=== PATIENT | female | born 1950 | race Caucasian/White ===

== ENCOUNTER 2016-09-12 10:45 | Inpatient (IN) | payer MEDICARE ==
--- NOTE | 2016-09-07 19:49 | HP ---
PREOPERATIVE HISTORY AND PHYSICAL: DATE OF ADMISSION: 09/14/16 PROVIDER: Dr. Alisia Chambers. CHIEF COMPLAINT: Left hip pain. HISTORY OF PRESENT ILLNESS: Ms. Nelson is a 66-year-old female who has had ongoing complaints of left hip pain. She was previously followed by Dr. Chambers for knee pain and underwent a total knee arthroplasty. She had recovered well from that, however, continues to have hip pain. She has failed antiinflammatories, physical therapy, and activity modification. She has elected to proceed with a total hip arthroplasty. PAST MEDICAL HISTORY: Osteoarthritis, hypercholesterolemia, hypertension, morbid obesity, and diabetes. PAST SURGICAL HISTORY: Tubal ligation, vein stripping, cataract surgery, and left total knee arthroplasty. She reports no complications with anesthesia with those procedures. CURRENT MEDICATIONS: 1. Metformin HCl 500 mg 2 tabs p.o. b.i.d. 2. Lisinopril 40 mg 1 p.o. q. day. 3. Levothyroxine 150 mcg p.o. q. day. 4. Gabapentin 300 mg p.o. t.i.d. 5. Ventolin HFA 100 mcg/act 1 to 2 puffs q.4 hours p.r.n. 6. Lovastatin 40 mg 1 p.o. q.h.s. 7. Vitamin D3 1000 units 2 tabs p.o. q. day. 8. Voltaren gel on the left hip as needed. 9. Glargine 74 units b.i.d. 10. Nasonex 50 mcg 2 puffs intranasally daily. 11. Oxycodone 10 mg p.o. b.i.d. ALLERGIES: No known drug allergies. FAMILY HISTORY: Positive for diabetes and cancer. SOCIAL HISTORY: She lives with her . She denies tobacco, alcohol, or recreational drug use. She is currently retired. REVIEW OF SYSTEMS: Constitutional: Negative for recent hospitalizations, fevers, chills, night sweats, or weight loss. HEENT: Head negative for headache, lightheadedness, or balance problems. Cardiovascular: Negative for chest or arm pain with exertion, history of heart attack, heart murmur, heart palpitations. Positive for high blood pressure. Negative for embolism or deep vein thrombosis. Respiratory: Negative for chronic cough, shortness of breath with exertion, asthma, or COPD. Gastrointestinal: Negative for heartburn, nausea, vomiting, diarrhea, constipation, or GERD. Genitourinary: Positive for nighttime urination. Negative for urinary frequency, urinary tract infections, or kidney problems. Musculo-skeletal: Negative for recent fractures. Positive for back pain. Skin: Negative for rashes, lesions, lumps , or sores. Neurologic: Negative for seizure, stroke, epilepsy, depression, or anxiety. Endocrine: Positive for diabetes, positive for hypothyroidism. Hematology: Negative for easy bleeding, bruising, or anemia. PHYSICAL EXAMINATION GENERAL: She is well-developed, well-nourished, pleasant female in no acute distress at rest. She is alert and oriented x3 with appropriate mood and affect. VITAL SIGNS: The patient is 5 feet 6 inches, 200 pounds. Blood pressure 148/62 , pulse 87, respirations 15. HEENT: Normocephalic, atraumatic. Hearing and vision are grossly intact. NECK: Her trachea is midline. RESPIRATORY: Lungs are clear to auscultation bilaterally. No wheezes, rales, or rhonchi. CARDIOVASCULAR: Regular rate and rhythm. No murmurs, rubs, or gallops. Normal S1, S2. ABDOMEN: Soft, nondistended, nontender. Normal bowel sounds. EXTREMITIES: Exam of the left lower extremity, skin is intact without abrasions or open wounds. She is tender to palpation along the greater trochanteric bursa as well as the anterior aspect of the hip in the groin. She is able to flex to 80 degrees passively. Any internal and external rotation causes groin pain. Her sensation to light touch is intact to all nerve distributions distally. She has a 2+ dorsalis pedis pulse. IMPRESSION: Left hip osteoarthritis. PLAN: The patient is to undergo left total hip arthroplasty by Dr. Chambers on . The risks, benefits, and postoperative course were discussed with the patient at length and she would like to proceed. All of her questions were answered to her full satisfaction. JULIUS RAMOS [id number]/[facility] #: [id number] COLIN
[~2016-09-12 10:45] MED LIST: Buffered Lidocaine 0.9% SYRIN* 5 ML/SYR SYRINGE INTRADERM ONE; Famotidine IV* 10 MG/ML 2 ML (20 mg) IV ONE; Levalbuterol 0.63MG/3ML NEB INH ONE; Metoclopramide TAB* 10 MG PO ONE
[2016-09-12] MEDS ORDERED: Famotidine IV* 10 MG/ML 2 ML (20 mg) ONE (10:50)
[2016-09-12] MEDS ORDERED: Buffered Lidocaine 0.9% SYRIN* 5 ML/SYR SYRINGE ONE (10:51)
[2016-09-12] MEDS ORDERED: ceFAZolin 2 GM PREMIX(*) 2 GM/50 ML BAG IVPB ONE (10:51)
[2016-09-12] MEDS ORDERED: Levalbuterol 1.25MG/0.5ML NEB ONE (10:51)
[2016-09-12] MEDS ORDERED: Metoclopramide TAB* 10 MG ONE (10:51)
[2016-09-12] MEDS ORDERED: Ketorolac INJ* 30 MG/ML 1 ML VIAL ONE (13:09)
[2016-09-12] MEDS ORDERED: Cisatracurium* 2 MG/ML MDV 5 ML ONE (13:09)
[2016-09-12] MEDS ORDERED: fentaNYL* 50 MCG/ML 5 ML VIAL (250 MCG VIAL) ONE (13:09)
[2016-09-12] MEDS ORDERED: Dexamethasone IV* 4 MG/ML 1 ML (4 MG) ONE (13:09)
[2016-09-12] MEDS ORDERED: Ondansetron INJ* 2 MG/ML VIAL ONE (13:09)
[2016-09-12] MEDS ORDERED: Propofol* 10 MG/ML 20 ML BTL IV PUSH ONE ×2 (13:09→14:28)
[2016-09-12] MEDS ORDERED: Lidocaine 2% PF * 5 ML VIAL ONE (13:09)
[2016-09-12] MEDS ORDERED: KETAMINE HCL* 50 MG/ML 10 ML VIAL ONE (13:09)
[2016-09-12] MEDS ORDERED: Midazolam* 1 MG/ML 5 ML VIAL (5 MG) ONE (13:10)
[2016-09-12] MEDS ORDERED: fentaNYL* 50 MCG/ML 2 ML VIAL (100 MCG VIAL) ONE ×4 (14:27→15:30)
[2016-09-12] MEDS ORDERED: Ondansetron ODT TAB* 4 MG PO PRN (14:30)
[2016-09-12] MEDS ORDERED: fentaNYL* 50 MCG/ML 2 ML VIAL (100 MCG VIAL) IV PRN (14:30)
[2016-09-12] MEDS ORDERED: HYDROmorphone* 1 MG/ML 1 ML SYR IV PRN (14:30)
[2016-09-12] MEDS ORDERED: DiMENhydriNATE IV* 50 MG/ML VIAL IV PUSH PRN (14:30)
[2016-09-12] MEDS ORDERED: Bupivacaine 0.5% SDV PF* 30 ML VIAL ONE (15:31)
[2016-09-12] MEDS ORDERED: Phenylephrine INJ* 10 MG/ML 1 ML VIAL (10 MG) ONE (15:50)
[2016-09-12] MEDS ORDERED: HYDROmorphone* 1 MG/ML 1 ML SYR ONE (15:58)
--- NOTE | 2016-09-12 16:07 | RAD ---
INDICATION: Intraoperative hip arthroplasty film TECHNIQUE: An AP view of the pelvis was obtained. FINDINGS: A right hip prosthesis appears to be anatomically aligned in the AP projection. The femoral head prosthesis has not yet been attached. IMPRESSION: Anatomic alignment in the AP projection of the acetabular and femoral shaft components of a right hip prosthesis.
[2016-09-12] MEDS ORDERED: Morphine INJ* 10 MG/ML 1 ML SYRINGE IV PRN (16:36)
[2016-09-12] MEDS ORDERED: Bisacodyl SUPP* 10 MG SUPP PR PRN (16:36)
[2016-09-12] MEDS ORDERED: diPHENhydraMINE PO* 25 MG PO PRN (16:36)
[2016-09-12] MEDS ORDERED: Ondansetron TAB* 4 MG PO PRN (16:36)
[2016-09-12] MEDS ORDERED: Ondansetron INJ* 2 MG/ML VIAL IV PRN (16:36)
[2016-09-12] MEDS ORDERED: diPHENhydraMINE IV* 50 MG/ML 1 ml VIAL (BENADRYL) IV PRN (16:36)
[2016-09-12] MEDS ORDERED: Polyethylene Glycol 3350* 17 GM PACKET PO PRN (16:42)
[2016-09-12] MEDS ORDERED: Fluticasone NASAL SPRAY 50MCG* 16 gm SPRAY BTL BOTH NARES PRN (16:49)
[2016-09-12] MEDS ORDERED: oxyCODONE/Acetamin 5/325 MG* TAB ONE (17:45)
[2016-09-12] MEDS: oxyCODONE/Acetamin 5/325 MG* TAB PO PRN ×3 (17:50→23:57)
--- NOTE | 2016-09-12 18:24 | RAD ---
INDICATION: Status post left total hip arthroplasty COMPARISON: Preoperative radiograph dated July 18, 2016 TECHNIQUE: 3 views of the left hip were obtained. FINDINGS: The left hip prosthesis is anatomically aligned in the AP and lateral views. There is no radiographic evidence of periprosthetic fracture or dislocation. Expected postoperative subcutaneous gas is noted overlying the hip. IMPRESSION: Anatomic alignment of left hip prosthesis.
[2016-09-12] MEDS: Gabapentin CAP(*) 300 MG PO SCH ×2 (19:37→20:52)
[2016-09-12] MEDS ORDERED: Warfarin TAB(*) 6 MG PO ONE (20:00)
[2016-09-12] MEDS: Atorvastatin* 10 MG TAB PO SCH (20:52)
[2016-09-12] MEDS: Magnesium Hydroxide LIQ* 30 ML UDC PO SCH (20:52)
[2016-09-12] MEDS: Insulin GLARGINE(*) 1 UNITS UNIT SUBCUT SCH (20:53)
[2016-09-12] MEDS: Docusate CAP* 100 MG PO SCH (20:53)
[2016-09-12] MEDS: ceFAZolin VIAL(*) 1 GM in NS 0.9% 50 ML* 50 ML IVPB SCH (20:54)
[2016-09-12] MEDS: Nystatin TOP POWDER* 15 GM BTL TOPICAL SCH (20:55)
[2016-09-13] MEDS: oxyCODONE TAB* 5 MG TAB PO PRN ×4 (01:20→17:36)
[2016-09-13] MEDS: ceFAZolin VIAL(*) 1 GM in NS 0.9% 50 ML* 50 ML IVPB SCH ×2 (03:54→12:00)
[2016-09-13] MEDS: oxyCODONE/Acetamin 5/325 MG* TAB PO PRN ×4 (05:33→21:56)
[2016-09-13] MEDS: Levothyroxine TAB* 150 MCG TAB PO SCH (05:33)
[2016-09-13 05:42] LABS: Hematocrit 28 % (35-47); Hemoglobin 9.5 g/dl (12.0-16.0)
[2016-09-13 05:43] LABS: Comments Flag Yes
[2016-09-13 06:09] LABS: BUN/Creatinine Ratio 23.3 (8-20); Calcium 8.3 mg/dL (8.6-10.3); EGFR African American 84.6 (>60); EGFR Non-African American 65.8 (>60); Potassium 4.9 mmol/L (3.5-5.0)
[2016-09-13] MEDS ORDERED: Dextrose 50% Syringe 50 ML* 25 GM/50 ML SYRINGE IV PUSH PRN (07:09)
--- NOTE | 2016-09-13 07:39 | PN ---
Progress Note - Progress Note Date of Service: 09/13/16 SOAP: Subjective: Pt. reports pain was severe overnight. Objective: LLE - dressing c/d/i. thigh soft, distally +df/pf, full sens lt, 2+ dp pulse. Vital Signs: Temp Pulse Resp BP Pulse Ox 98.0 F 78 16 121/43 96 09/13/16 04:08 09/13/16 04:08 09/13/16 05:49 09/13/16 04:08 09/13/16 05:49 Laboratory Results - last 24 hr 09/12/16 09/12/16 09/12/16 11:04 14:23 16:39 Hgb Hct INR (Anticoag Therapy) Sodium Potassium Chloride Carbon Dioxide Anion Gap BUN Creatinine Est GFR ( Amer) Est GFR (Non-Af Amer) BUN/Creatinine Ratio Glucose POC Glucose (mg/dL) 139 H 128 H 206 H Calcium 09/13/16 09/13/16 09/13/16 00:02 05:29 05:29 Hgb 9.5 L Hct 28 L INR (Anticoag Therapy) 1.08 Sodium Potassium Chloride Carbon Dioxide Anion Gap BUN Creatinine Est GFR ( Amer) Est GFR (Non-Af Amer) BUN/Creatinine Ratio Glucose POC Glucose (mg/dL) 359 H Calcium 09/13/16 05:29 Hgb Hct INR (Anticoag Therapy) Sodium 136 Potassium 4.9 Chloride 105 Carbon Dioxide 25 Anion Gap 6 BUN 20 Creatinine 0.86 Est GFR ( Amer) 84.6 Est GFR (Non-Af Amer) 65.8 BUN/Creatinine Ratio 23.3 H Glucose 262 H POC Glucose (mg/dL) Calcium 8.3 L Assessment: 66 yo F pod 1 s/p LTHA Plan: wbat LLE with post hip precautions pt/ot 8 mg coumadin tonight with lovenox today xrays satisfactory
[2016-09-13] MEDS: metFORMIN* 1,000 MG TAB PO SCH ×2 (08:00→17:10)
[2016-09-13] MEDS: Magnesium Hydroxide LIQ* 30 ML UDC PO SCH ×2 (08:41→22:00)
[2016-09-13] MEDS: Gabapentin CAP(*) 300 MG PO SCH ×4 (08:41→21:56)
[2016-09-13] MEDS: Docusate CAP* 100 MG PO SCH ×2 (08:41→21:56)
[2016-09-13] MEDS: Insulin GLARGINE(*) 1 UNITS UNIT SUBCUT SCH ×2 (08:42→21:54)
[2016-09-13] MEDS: Insulin LISPRO* 1 UNITS UNIT SUBCUT SCH ×4 (08:42→21:53)
[2016-09-13] MEDS: Nystatin TOP POWDER* 15 GM BTL TOPICAL SCH ×2 (08:46→22:03)
[2016-09-13] MEDS ORDERED: Lisinopril TAB* 10 MG PO SCH (09:00)
--- NOTE | 2016-09-13 13:41 | OP ---
OPERATIVE REPORT: DATE OF OPERATION: 09/12/16 DATE OF : 48 SURGEON: Alisia Chambers MD FENCE MACHINE OPERATOR: JULIUS Vallejo Ms. Bah did help throughout the procedure with preparation of the leg, wound retraction, manipula tion of the hip, and wound closure. ANESTHESIOLOGIST: Dr. Peña. ANESTHESIA: General. PRE-OP DIAGNOSIS: Severe end-stage degenerative osteoarthritis of the left hip joint. POST-OP DIAGNOSIS: Severe end-stage degenerative osteoarthritis of the left hip joint. OPERATIVE PROCEDURE: Left total hip arthroplasty. INDICATIONS: Ms. Nelson is a 66-year-old female who developed increasingly severe left hip pain over the last few months. Radiographs confirmed end-stage arthritis. She failed conservative treatment with anti-inflammatories, pain medication, and physical therapy. Due to severe pain and decreased q uality of life, she elected to undergo left total hip arthroplasty. Informed consent was obtained f rom the patient. She understood the risks of surgery included but were not limited to bleeding, inf ection, damage to nearby structures, continued pain, need for further surgery, intraoperative fractu re, nerve palsy, hardware failure or loosening, leg length discrepancy, dislocation, stroke, heart a ttack, blood clot, and . She wished to proceed. COMPLICATIONS: None. SPECIMENS: Femoral head and acetabular reaming sent to Pathology. HARDWARE USED: Uncemented [place] total hip hardware was used. For the cup, a Tritanium cluster ho le shell 54E with a 20- and 25-mm cancellous bone screw. Trident X3 0-degree polyethylene insert 36E . For the stem, an Accolade TMZF size 5 with a 127-degree neck. Biolox delta ceramic V40 femoral h ead 36 -5. INTRAOPERATIVE FINDINGS: Intraoperatively, the patient was noted to have severe end-stage arthritis of the joint with complete loss of cartilage along the acetabulum and femoral head. She had extens ángel osteophyte formation. DESCRIPTION OF PROCEDURE: Ms. Nelson was identified in the preanesthesia unit. Her left lower extre mity was marked as the correct operative side. Informed consent was signed and placed in the chart. The patient was taken to the operating room and placed under general anesthesia. A Marques catheter was placed. She was placed in the right lateral decubitus position on the pegboard and all bony pr ominences were well padded. Left lower extremity was prepped and draped in the usual sterile fashio n. Preop time-out was made to correctly identify the patient's side and site. Appropriate perioper ative antibiotics were given within 1 hour of incision. A 14-cm posterior hip incision was made with a 10-blade and carried down to the lateral fascial laye r. Lateral fascial layer was incised in line with the skin incision. A Charnley retractor was plac ed. The piriformis and conjoint tendons were identified and elevated off the posterolateral femur u sing electrocautery. These were tagged with two #5 Ethibond's. Next, electrocautery was used to renato e a standard posterolateral capsular flap and this was also tagged with two #5 Ethibond's. The hip was carefully dislocated. Lesser troch to center of the femoral head measured 55 mm. Oscillating s aw was used to make the appropriate femoral neck cut. The femoral head was sent to Pathology. The femur was carefully retracted anteriorly. After appropriate placement of retractors, the aceta bulum was visualized. A long-handled knife was used to sharply remove any remaining labrum from the acetabular rim. The acetabulum had extensive osteophyte formation. The acetabulum was sequentiall y reamed to a size 53. A bleeding subchondral bone was visualized. 53-mm trial had excellent stabi lity and fit. A 54 Tritanium cluster hole shell was chosen and impacted into the acetabulum. This cup had excellent stability with appropriate anteversion and abduction angle. Two screws were place d in the superior posterior quadrant for extra stability. These were lengths 20 and 25 mm. Next, a Trident X3 0-degree polyethylene insert was chosen, 36E. This was impacted into the acetabular cup without difficulty. Stability of the alignment was checked and rechecked and noted to be stable. Attention was next turned to preparation of the femur. A canal finder was used to enter the proxima l femur. The femur was sequentially broached up to a size 5. The size 5 broach had good stability. A 127-degree neck trial was chosen as well as a 36 -5 femoral head trial. Lesser troch to center of the femoral head measured 56 mm. The hip was reduced and taken through a range of motion. The h ip was stable in all positions. There was appropriate soft tissue tension and leg lengths. The hip was carefully dislocated. All trials were carefully removed. Final implant chosen was an Accolade TMZF size 5 with a 127-degree neck. This was impacted into the femoral canal without difficulty. There was good stability of the stem. Appropriate anteversion. A 36 -5 ceramic Biolox femoral head was chosen. This was impacted on to the femoral neck without d ifficulty. The hip was reduced and taken through range of motion. The hip was stable in all positi ons. The hip was copiously irrigated with sterile saline. The previously tagged capsule and tendons were reapproximated to the posterolateral femur through 2 trochanteric drill holes. The lateral fascial layer was closed using interrupted #1 Vicryl's. The rest of the incision was closed in a layered fa shion using 0 and 2-0 Vicryl's. The skin was closed using running 3-0 Monocryl suture with Dermabond . Sterile Adaptic, 4x4s, and paper tape were used to cover the incision. The patient's anesthesia was reversed without difficulty. She was taken to the PACU in stable condi tion. Intended weightbearing will be weightbearing as tolerated. Intended DVT prophylaxis will be Coumadin with a Lovenox bridge. [id number]/[facility] #: [id number]
--- NOTE | 2016-09-13 16:13 | PN ---
Subjective Date of Service: 09/13/16 Interval History: This is a 66 yo female with IDDM, hypothyroidism, HTN, HLD and obesity who presented for elective MAUREEN with Dr Chambers yesterday. Patient reports that her pain control is moderate. She denies CP, SOB, abd pain, n/v. She has been hyperglycemic since surgery, she reports better control at home. Objective Active Medications: Atorvastatin Calcium (Lipitor*) 5 mg PO BEDTIME [facility] Last Admin: 09/12/16 20:52 Dose: 5 mg Bisacodyl (Dulcolax Supp*) 10 mg DC DAILY PRN PRN Reason: constipation Dextrose (D50w Syringe 50 Ml*) 12.5 gm IV PUSH .FOR FS < 60 - SS PRN PRN Reason: FS < 60 Diphenhydramine HCl (Benadryl Iv*) 12.5 mg IV Q6H PRN PRN Reason: PRURITIS Diphenhydramine HCl (Benadryl Po*) 25 mg PO Q6H PRN PRN Reason: INSOMNIA Docusate Sodium (Colace Cap*) 100 mg PO BID [facility] Last Admin: 09/13/16 08:41 Dose: 100 mg Enoxaparin Sodium (Lovenox(*)) 30 mg SUBCUT Q24H [facility] Fluticasone Propionate (Flonase Nasal [place] 50mcg*) 2 spray BOTH NARES DAILY PRN PRN Reason: Chronic Sinusitis Gabapentin (Neurontin Cap(*)) 300 mg PO QID [facility] Last Admin: 09/13/16 13:04 Dose: 300 mg Lactated Ringer's (Lactated Ringers 1000 Ml Bag*) 1,000 mls @ 100 mls/hr IV PER RATE [facility] Last Admin: 09/12/16 20:54 Dose: 100 mls/hr Insulin Glargine (Lantus(*)) 74 units SUBCUT BID [facility] Last Admin: 09/13/16 08:42 Dose: 74 units Insulin Human Lispro (Humalog*) 0 units SUBCUT ACHS [facility] PRN Reason: Protocol Last Admin: 09/13/16 13:04 Dose: 6 units Lactulose (Lactulose*) 30 ml PO Q6H PRN PRN Reason: constipation Levothyroxine Sodium (Synthroid Tab*) 150 mcg PO 0600 [facility] Last Admin: 09/13/16 05:33 Dose: 150 mcg Magnesium Hydroxide (Milk Of Magnesia Liq*) 30 ml PO BID [facility] Last Admin: 09/13/16 08:41 Dose: 30 ml Metformin HCl (Glucophage*) 1,000 mg PO 0800,1700 [facility] Last Admin: 09/13/16 08:00 Dose: 1,000 mg Morphine Sulfate (Morphine Inj (Syringe)*) 5 mg IV Q2H PRN PRN Reason: PAIN Nystatin (Nystatin Top Powder*) 1 applic TOPICAL BID [facility] Last Admin: 09/13/16 08:46 Dose: 1 applic Ondansetron HCl (Zofran Inj*) 4 mg IV Q6H PRN PRN Reason: nausea Ondansetron HCl (Zofran Tab*) 4 mg PO Q6H PRN PRN Reason: NAUSEA Oxycodone HCl (Roxycodone Tab*) 10 mg PO Q4H PRN PRN Reason: breakthru pain Last Admin: 09/13/16 12:04 Dose: 10 mg Oxycodone/Acetaminophen (Percocet 5/325 Tab*) 1 tab PO Q3H PRN PRN Reason: PAIN - MODERATE Last Admin: 09/12/16 23:57 Dose: 1 tab Oxycodone/Acetaminophen (Percocet 5/325 Tab*) 2 tab PO Q3H PRN PRN Reason: PAIN - MODERATE Last Admin: 09/13/16 15:36 Dose: 2 tab Pharmacy Profile Note (Coumadin Daily Reminder*) 1 note FOLLOW UP 1700 [facility] Polyethylene Glycol/Electrolytes (Miralax*) 17 gm PO DAILY PRN PRN Reason: Constipation Warfarin Sodium (Coumadin Tab(*)) 8 mg PO ONCE@1700 ONE PRN Reason: Protocol Stop: 09/13/16 17:01 Vital Signs: Temp Pulse Resp BP Pulse Ox 98.0 F 89 18 119/40 97 09/13/16 11:07 09/13/16 11:07 09/13/16 15:36 09/13/16 11:07 09/13/16 16:00 Oxygen Devices in Use Now: None Appearance: Well appearing female accompanied by family in NAD Respiratory: Symmetrical Chest Expansion and Respiratory Effort, Clear to Auscultation Cardiovascular: NL Sounds; No Murmurs; No JVD, RRR Abdominal: NL Sounds; No Tenderness; No Distention Extremities: No Edema Skin: No Rash or Ulcers Neurological: Alert and Oriented x 3 Result Diagrams: 09/13/16 05:29 09/13/16 05:29 Assess/Plan/Problems-Billing Assessment: This is a 66 yo female with IDDM, hypothyroidism, HTN, HLD and obesity who underwent MAUREEN with Dr Chambers 09/12/16. Hospitalist group has been asked to consult for medical co-management. - Patient Problems (1) History of total hip arthroplasty Comment: POD #1 Postoperative management per orthopedic surgery team (2) Diabetes mellitus Comment: IDDM Will check HgbA1c She is hyperglycemic postoperatively with her typical Lantus dose continued Add additional mealtime SS coverage (3) Hypertension Comment: Normotensive Resume lisinopril tomorrow am (4) Hypothyroidism Comment: Cont levothyroxine (5) MANDY (obstructive sleep apnea) (6) Obesity Comment: BMI 36 (7) DVT prophylaxis Comment: Lovenox bridging to Coumadin per ortho Status and Disposition: Inpatient. Dispo per ortho. Plans to attend [facility] following discharge. Hospitalist group will continue to follow
[2016-09-13] MEDS ORDERED: Warfarin TAB(*) 4 MG PO ONE (17:00)
[2016-09-13] MEDS: Enoxaparin(*) 30 MG/0.3 ML SYR SUBCUT SCH (17:11)
--- NOTE | 2016-09-13 17:30 | PN ---
Progress Note - Progress Note Date of Service: 09/13/16 SOAP: Subjective: This is a 66 yo white female s/p day 1 left tota, hip secondary to OA with PMH of hyperlipidemia, HTN, DM, and obesity. She complains of continued left hip pain but has been able to ambulate some throughout the day. Pain was worse overnight but is manageable with medication. Denies SOB, chest pain, abdominal pain, n/v/d/c, edema, weakness, chills, or fever. She remains with vital signs WNL. Active medications: Atorvastatin Calcium (Lipitor*) 5 mg PO BEDTIME [facility] Last Admin: 09/12/16 20:52 Dose: 5 mg Bisacodyl (Dulcolax Supp*) 10 mg MD DAILY PRN PRN Reason: constipation Dextrose (D50w Syringe 50 Ml*) 12.5 gm IV PUSH .FOR FS < 60 - SS PRN PRN Reason: FS < 60 Diphenhydramine HCl (Benadryl Iv*) 12.5 mg IV Q6H PRN PRN Reason: PRURITIS Diphenhydramine HCl (Benadryl Po*) 25 mg PO Q6H PRN PRN Reason: INSOMNIA Docusate Sodium (Colace Cap*) 100 mg PO BID [facility] Last Admin: 09/13/16 08:41 Dose: 100 mg Enoxaparin Sodium (Lovenox(*)) 30 mg SUBCUT Q24H [facility] Last Admin: 09/13/16 17:11 Dose: 30 mg Fluticasone Propionate (Flonase Nasal [place] 50mcg*) 2 spray BOTH NARES DAILY PRN PRN Reason: Chronic Sinusitis Gabapentin (Neurontin Cap(*)) 300 mg PO QID [facility] Last Admin: 09/13/16 17:10 Dose: 300 mg Lactated Ringer's (Lactated Ringers 1000 Ml Bag*) 1,000 mls @ 100 mls/hr IV PER RATE [facility] Last Admin: 09/12/16 20:54 Dose: 100 mls/hr Insulin Glargine (Lantus(*)) 74 units SUBCUT BID [facility] Last Admin: 09/13/16 08:42 Dose: 74 units Insulin Human Lispro (Humalog*) 0 units SUBCUT ACHS [facility] PRN Reason: Protocol Last Admin: 07/12/17 17:36 Dose: 6 units Lactulose (Lactulose*) 30 ml PO Q6H PRN PRN Reason: constipation Levothyroxine Sodium (Synthroid Tab*) 150 mcg PO 0600 [facility] Last Admin: 09/13/16 05:33 Dose: 150 mcg Lisinopril (Prinivil Tab*) 40 mg PO DAILY [facility] Magnesium Hydroxide (Milk Of Magnesia Liq*) 30 ml PO BID [facility] Last Admin: 09/13/16 08:41 Dose: 30 ml Metformin HCl (Glucophage*) 1,000 mg PO 0800,1700 [facility] Last Admin: 09/13/16 17:10 Dose: 1,000 mg Morphine Sulfate (Morphine Inj (Syringe)*) 5 mg IV Q2H PRN PRN Reason: PAIN Nystatin (Nystatin Top Powder*) 1 applic TOPICAL BID [facility] Last Admin: 09/13/16 08:46 Dose: 1 applic Ondansetron HCl (Zofran Inj*) 4 mg IV Q6H PRN PRN Reason: nausea Ondansetron HCl (Zofran Tab*) 4 mg PO Q6H PRN PRN Reason: NAUSEA Oxycodone HCl (Roxycodone Tab*) 10 mg PO Q4H PRN PRN Reason: breakthru pain Last Admin: 09/13/16 17:36 Dose: 10 mg Oxycodone/Acetaminophen (Percocet 5/325 Tab*) 1 tab PO Q3H PRN PRN Reason: PAIN - MODERATE Last Admin: 09/12/16 23:57 Dose: 1 tab Oxycodone/Acetaminophen (Percocet 5/325 Tab*) 2 tab PO Q3H PRN PRN Reason: PAIN - MODERATE Last Admin: 09/13/16 15:36 Dose: 2 tab Pharmacy Profile Note (Coumadin Daily Reminder*) 1 note FOLLOW UP 1700 [facility] Last Admin: 09/13/16 17:11 Dose: 1 note Polyethylene Glycol/Electrolytes (Miralax*) 17 gm PO DAILY PRN PRN Reason: Constipation Allergies Allergy/AdvReac Type Severity Reaction Status Date / Time No Known Allergies Allergy Verified 09/01/16 15:51 Objective: Vital Signs: Temp Pulse Resp BP Pulse Ox 98.0 F 89 18 119/40 97 09/13/16 11:07 09/13/16 11:07 09/13/16 17:36 09/13/16 11:07 07/12/17 16:00 General: 66 yo obese white female sitting in chair in NAD. Skin: No areas of ecchymosis, erythema, lesions. Left hip with dry dressing no visible discharge or bleeding from incision site. Heart: RRR, S1 and S2 split, No JVD, No murmurs, rubs, or gallops. Lungs: Chest is symmetric, clear to auscultation throughout. Abdomen: Normactive bowel sounds, Abdomen is soft and nontender. Extremities: No edema, PP 2+ bilaterally, capillary refill less than 2 seconds. Neuro: Sensation intact throughout. Strength 5/5 throughout. Alert and oriented x3. Assessment/Plan: This is a 66 yo white female s/p day 1 left tota, hip secondary to OA with PMH of hyperlipidemia, HTN, DM, and obesity. 1) Status post operative left total hip: Management per ortho. 2) DM: Unsure about how well controlled patient is as glucose readings here are in the 200's. Patient states BG readings around 110-140 at home. No record found of previous hemoglobin A1C, she denies knowing previous reading. Cover with lantus and humalog while inpatient. 3) Hyperlipidemia: Cont statin 4) HTN: Start lisinopril. BP WNL. 5) Hypothyroidism: Cont Synthroid 6) DVT Prophylaxis: Lovenox bridge with Warfarin per ortho. 7) Code Status: Full code.
[2016-09-13] MEDS: Atorvastatin* 10 MG TAB PO SCH (21:57)
[2016-09-14] MEDS: oxyCODONE/Acetamin 5/325 MG* TAB PO PRN ×5 (02:57→21:57)
[2016-09-14] MEDS: oxyCODONE TAB* 5 MG TAB PO PRN (04:31)
[2016-09-14] MEDS: Levothyroxine TAB* 150 MCG TAB PO SCH (05:48)
[2016-09-14 07:18] LABS: Hematocrit 26 % (35-47); Hemoglobin 8.9 g/dl (12.0-16.0)
--- NOTE | 2016-09-14 08:05 | PN ---
Progress Note - Progress Note Date of Service: 09/14/16 SOAP: Subjective: POD #2 Left MAUREEN, doing ok. C/o moderate pain to hip and thigh. Denies CP/SOB, calf pain Objective: Vitals: Temp Pulse Resp BP Pulse Ox 98.2 F 98 18 123/47 94 09/14/16 07:28 09/14/16 07:28 09/14/16 07:28 09/14/16 07:28 09/14/16 07:28 Gen: A&Ox3, NAD at rest in chair Left Hip: Incision C/D/I. Moderate edema to thigh and calf, small ecchymosis surrounding incision. No erythema. +f/e at ankle, MTPs. N/V intact Labs: Laboratory Results - last 24 hr 09/13/16 09/13/16 09/13/16 12:00 16:39 21:44 Hgb Hct INR (Anticoag Therapy) POC Glucose (mg/dL) 262 H 259 H 258 H 09/14/16 09/14/16 09/14/16 05:26 05:26 07:19 Hgb 8.9 L Hct 26 L INR (Anticoag Therapy) 1.31 H POC Glucose (mg/dL) 229 H Assessment: POD #2 Left MUAREEN Plan: Cont PT/OT Cont pain medication INR 1.31 today, Coumadin 8mg tonight Probable d/c home tomorrow
[2016-09-14] MEDS: Magnesium Hydroxide LIQ* 30 ML UDC PO SCH ×2 (08:20→21:59)
[2016-09-14] MEDS: Insulin LISPRO* 1 UNITS UNIT SUBCUT SCH ×4 (08:20→21:58)
[2016-09-14] MEDS: Gabapentin CAP(*) 300 MG PO SCH ×4 (08:21→21:57)
[2016-09-14] MEDS: Docusate CAP* 100 MG PO SCH ×2 (08:21→21:57)
[2016-09-14] MEDS: Insulin GLARGINE(*) 1 UNITS UNIT SUBCUT SCH ×2 (08:21→21:58)
[2016-09-14] MEDS: Lisinopril TAB* 10 MG PO SCH (08:21)
[2016-09-14] MEDS: metFORMIN* 1,000 MG TAB PO SCH ×2 (08:21→16:49)
[2016-09-14] MEDS: Nystatin TOP POWDER* 15 GM BTL TOPICAL SCH ×2 (08:40→21:59)
--- NOTE | 2016-09-14 09:27 | PN ---
Progress Note - Progress Note Date of Service: 09/14/16 SOAP: Subjective: This is a 66 yo white female s/p day 2 left total hip secondary to OA with PMH of hyperlipidemia, HTN, DM, and obesity with no improvement with left hip pain on lateral side. More painful overnight and with ambulation, manageable with pain medication. Admits to constipation with last BM 4 days ago. Denies weakness , SOB, chest pain, extremity pain. Active medications: Atorvastatin Calcium (Lipitor*) 5 mg PO BEDTIME [facility] Last Admin: 09/13/16 21:57 Dose: 5 mg Bisacodyl (Dulcolax Supp*) 10 mg [place] DAILY PRN PRN Reason: constipation Dextrose (D50w Syringe 50 Ml*) 12.5 gm IV PUSH .FOR FS < 60 - SS PRN PRN Reason: FS < 60 Diphenhydramine HCl (Benadryl Iv*) 12.5 mg IV Q6H PRN PRN Reason: PRURITIS Diphenhydramine HCl (Benadryl Po*) 25 mg PO Q6H PRN PRN Reason: INSOMNIA Docusate Sodium (Colace Cap*) 100 mg PO BID [facility] Last Admin: 09/14/16 08:21 Dose: 100 mg Enoxaparin Sodium (Lovenox(*)) 30 mg SUBCUT Q24H [facility] Last Admin: 09/13/16 17:11 Dose: 30 mg Fluticasone Propionate (Flonase Nasal [place] 50mcg*) 2 spray BOTH NARES DAILY PRN PRN Reason: Chronic Sinusitis Gabapentin (Neurontin Cap(*)) 300 mg PO QID [facility] Last Admin: 09/14/16 08:21 Dose: 300 mg Lactated Ringer's (Lactated Ringers 1000 Ml Bag*) 1,000 mls @ 100 mls/hr IV PER RATE [facility] Last Admin: 09/12/16 20:54 Dose: 100 mls/hr Insulin Glargine (Lantus(*)) 74 units SUBCUT BID [facility] Last Admin: 09/14/16 08:21 Dose: 74 units Insulin Human Lispro (Humalog*) 0 units SUBCUT ACHS [facility] PRN Reason: Protocol Last Admin: 09/14/16 08:20 Dose: 4 units Lactulose (Lactulose*) 30 ml PO Q6H PRN PRN Reason: constipation Levothyroxine Sodium (Synthroid Tab*) 150 mcg PO 0600 [facility] Last Admin: 09/14/16 05:48 Dose: 150 mcg Lisinopril (Prinivil Tab*) 40 mg PO DAILY [facility] Last Admin: 09/14/16 08:21 Dose: 40 mg Magnesium Hydroxide (Milk Of Magnesia Liq*) 30 ml PO BID [facility] Last Admin: 09/14/16 08:20 Dose: 30 ml Metformin HCl (Glucophage*) 1,000 mg PO 0800,1700 [facility] Last Admin: 09/14/16 08:21 Dose: 1,000 mg Morphine Sulfate (Morphine Inj (Syringe)*) 5 mg IV Q2H PRN PRN Reason: PAIN Nystatin (Nystatin Top Powder*) 1 applic TOPICAL BID [facility] Last Admin: 09/14/16 08:40 Dose: 1 applic Ondansetron HCl (Zofran Inj*) 4 mg IV Q6H PRN PRN Reason: nausea Ondansetron HCl (Zofran Tab*) 4 mg PO Q6H PRN PRN Reason: NAUSEA Oxycodone HCl (Roxycodone Tab*) 10 mg PO Q4H PRN PRN Reason: breakthru pain Last Admin: 09/14/16 04:31 Dose: 10 mg Oxycodone/Acetaminophen (Percocet 5/325 Tab*) 1 tab PO Q3H PRN PRN Reason: PAIN - MODERATE Last Admin: 09/12/16 23:57 Dose: 1 tab Oxycodone/Acetaminophen (Percocet 5/325 Tab*) 2 tab PO Q3H PRN PRN Reason: PAIN - MODERATE Last Admin: 09/14/16 08:27 Dose: 2 tab Pharmacy Profile Note (Coumadin Daily Reminder*) 1 note FOLLOW UP 1700 [facility] Last Admin: 09/13/16 17:11 Dose: 1 note Polyethylene Glycol/Electrolytes (Miralax*) 17 gm PO DAILY PRN PRN Reason: Constipation Warfarin Sodium (Coumadin Tab(*)) 8 mg PO ONCE@1700 ONE PRN Reason: Protocol Stop: 09/14/16 17:01 Allergies Allergy/AdvReac Type Severity Reaction Status Date / Time No Known Allergies Allergy Verified 09/01/16 15:51 Objective: Vital Signs: Temp Pulse Resp BP Pulse Ox 98.2 F 98 18 123/47 94 09/14/16 07:28 09/14/16 07:28 09/14/16 08:27 09/14/16 07:28 09/14/16 07:28 General: 66 yo obese white female sitting in chair in NAD. Skin: No areas of ecchymosis, erythema, lesions. Left hip with dry dressing no visible discharge or bleeding from incision site. Heart: RRR, S1 and S2 split, No JVD, No murmurs, rubs, or gallops. Lungs: Chest is symmetric, clear to auscultation throughout. Abdomen: Normactive bowel sounds, Abdomen is soft and nontender. Extremities: No edema, PP 2+ bilaterally, capillary refill less than 2 seconds. Neuro: Sensation intact throughout. Strength 5/5 throughout. Alert and oriented x3. Assessment/Plan: This is a 66 yo white female s/p day 2 left total hip secondary to OA with PMH of hyperlipidemia, HTN, DM, and obesity. 1) Status post operative left total hip: Management per ortho. Probably discharge tomorrow to [facility]. 2) DM: Unsure about how well controlled patient is as glucose readings here are in the 200's. Patient states BG readings around 110-140 at home. No record found of previous hemoglobin A1C, she denies knowing previous reading. Cover with lantus and humalog while inpatient. 3) Hyperlipidemia: Cont statin 4) HTN: Start lisinopril. BP WNL. 5) Hypothyroidism: Cont Synthroid 6) DVT Prophylaxis: Lovenox bridge with Warfarin per ortho. INR: 1.31 7) Code Status: Full code.
--- NOTE | 2016-09-14 11:37 | PN ---
Subjective Date of Service: 09/14/16 Interval History: Patient reports persistent pain, but it seems manageable with current pain medications. No complaints of CP, SOB, abd pain, n/v. No BM since surgery. Objective Active Medications: Atorvastatin Calcium (Lipitor*) 5 mg PO BEDTIME [facility] Last Admin: 09/13/16 21:57 Dose: 5 mg Bisacodyl (Dulcolax Supp*) 10 mg [place] DAILY PRN PRN Reason: constipation Dextrose (D50w Syringe 50 Ml*) 12.5 gm IV PUSH .FOR FS < 60 - SS PRN PRN Reason: FS < 60 Diphenhydramine HCl (Benadryl Iv*) 12.5 mg IV Q6H PRN PRN Reason: PRURITIS Diphenhydramine HCl (Benadryl Po*) 25 mg PO Q6H PRN PRN Reason: INSOMNIA Docusate Sodium (Colace Cap*) 100 mg PO BID [facility] Last Admin: 09/14/16 08:21 Dose: 100 mg Enoxaparin Sodium (Lovenox(*)) 30 mg SUBCUT Q24H [facility] Last Admin: 09/13/16 17:11 Dose: 30 mg Fluticasone Propionate (Flonase Nasal [place] 50mcg*) 2 spray BOTH NARES DAILY PRN PRN Reason: Chronic Sinusitis Gabapentin (Neurontin Cap(*)) 300 mg PO QID [facility] Last Admin: 09/14/16 08:21 Dose: 300 mg Lactated Ringer's (Lactated Ringers 1000 Ml Bag*) 1,000 mls @ 100 mls/hr IV PER RATE [facility] Last Admin: 09/12/16 20:54 Dose: 100 mls/hr Insulin Glargine (Lantus(*)) 74 units SUBCUT BID [facility] Last Admin: 09/14/16 08:21 Dose: 74 units Insulin Human Lispro (Humalog*) 0 units SUBCUT ACHS [facility] PRN Reason: Protocol Lactulose (Lactulose*) 30 ml PO Q6H PRN PRN Reason: constipation Levothyroxine Sodium (Synthroid Tab*) 150 mcg PO 0600 [facility] Last Admin: 09/14/16 05:48 Dose: 150 mcg Lisinopril (Prinivil Tab*) 40 mg PO DAILY [facility] Last Admin: 09/14/16 08:21 Dose: 40 mg Magnesium Hydroxide (Milk Of Magnesia Liq*) 30 ml PO BID [facility] Last Admin: 09/14/16 08:20 Dose: 30 ml Metformin HCl (Glucophage*) 1,000 mg PO 0800,1700 [facility] Last Admin: 09/14/16 08:21 Dose: 1,000 mg Morphine Sulfate (Morphine Inj (Syringe)*) 5 mg IV Q2H PRN PRN Reason: PAIN Nystatin (Nystatin Top Powder*) 1 applic TOPICAL BID [facility] Last Admin: 09/14/16 08:40 Dose: 1 applic Ondansetron HCl (Zofran Inj*) 4 mg IV Q6H PRN PRN Reason: nausea Ondansetron HCl (Zofran Tab*) 4 mg PO Q6H PRN PRN Reason: NAUSEA Oxycodone HCl (Roxycodone Tab*) 10 mg PO Q4H PRN PRN Reason: breakthru pain Last Admin: 09/14/16 04:31 Dose: 10 mg Oxycodone/Acetaminophen (Percocet 5/325 Tab*) 1 tab PO Q3H PRN PRN Reason: PAIN - MODERATE Last Admin: 09/12/16 23:57 Dose: 1 tab Oxycodone/Acetaminophen (Percocet 5/325 Tab*) 2 tab PO Q3H PRN PRN Reason: PAIN - MODERATE Last Admin: 09/14/16 08:27 Dose: 2 tab Pharmacy Profile Note (Coumadin Daily Reminder*) 1 note FOLLOW UP 1700 [facility] Last Admin: 09/13/16 17:11 Dose: 1 note Polyethylene Glycol/Electrolytes (Miralax*) 17 gm PO DAILY PRN PRN Reason: Constipation Warfarin Sodium (Coumadin Tab(*)) 8 mg PO ONCE@1700 ONE PRN Reason: Protocol Stop: 09/14/16 17:01 Vital Signs: Temp Pulse Resp BP Pulse Ox 98.2 F 98 18 123/47 94 09/14/16 07:28 09/14/16 07:28 09/14/16 09:57 09/14/16 07:28 09/14/16 08:00 Oxygen Devices in Use Now: None Appearance: Well appearing and in NAD Respiratory: Symmetrical Chest Expansion and Respiratory Effort, Clear to Auscultation Cardiovascular: NL Sounds; No Murmurs; No JVD, RRR Abdominal: NL Sounds; No Tenderness; No Distention Extremities: No Edema Neurological: Alert and Oriented x 3 Result Diagrams: 09/14/16 05:26 09/13/16 05:29 Assess/Plan/Problems-Billing Assessment: This is a 66 yo female with IDDM, hypothyroidism, HTN, HLD and obesity who underwent MAUREEN with Dr Chambers 09/12/16. Hospitalist group has been asked to consult for medical co-management. - Patient Problems (1) History of total hip arthroplasty Comment: POD #2 Postoperative management per orthopedic surgery team (2) Diabetes mellitus Comment: IDDM, patient reports good control at home HgbA1c pending Typical home Lantus dose has been continued Increase meal time Humalog boluses (3) Hypertension Comment: Normotensive Cont home antihypertensives (4) Hypothyroidism Comment: Cont levothyroxine (5) MANDY (obstructive sleep apnea) (6) Obesity Comment: BMI 36 (7) DVT prophylaxis Comment: Lovenox bridging to Coumadin per ortho Status and Disposition: Inpatient. Dispo per ortho. Plans to attend [facility] following discharge. Hospitalist group will continue to follow
--- NOTE | 2016-09-14 14:16 | CONS ---
CONSULTATION REPORT: DATE OF CONSULT: 09/12/16 ATTENDING PHYSICIAN: Alisia Chambers MD. CONSULTING PHYSICIAN: Jez Reed MD (dictation provided by Reina Oscar NP) REASON FOR CONSULTATION: Medical co-management, patient admitted for left hip total arthroplasty. HISTORY OF PRESENT ILLNESS: Ms. Nelson is a 66-year-old female with past medical history of osteoarthritis, hypercholesteremia, hypertension, morbid obesity, and diabetes, who presented to the hospital on 09/12/16 for planned left hip total arthroplasty. Please see dictated H and P from Dr. Chambers for complete details. In brief, the patient had failed outpatient management with conservative therapy and decided for surgical intervention. Ms. Nelson states that prior coming in to surgery, she was feeling well. She denies any acute complaints. She states that her blood sugars have been well controlled on her 74 units twice daily of glargine as well as metformin. She has had no recent fevers, chills, cough, chest pain, shortness of breath, nausea , abdominal pain, or diarrhea. PAST MEDICAL HISTORY: 1. Osteoarthritis. 2. Hypercholesterolemia. 3. Hypertension. 4. Morbid obesity. 5. Type 2 diabetes, insulin dependent. PAST SURGICAL HISTORY: 1. Tubal ligation. 2. Vein stripping. 3. Cataract surgery. 4. Left total knee arthroplasty. MEDICATION OUTPATIENT: 1. Metformin 500 mg 2 tabs b.i.d. 2. Lisinopril 40 mg p.o. daily. 3. Levothyroxine 150 mcg p.o. daily. 4. Gabapentin 300 mg p.o. 3 times daily. 5. Ventolin HFA 2 puffs inhaled q. 4 hours p.r.n. 6. Lovastatin 40 mg p.o. q.h.s. 7. Vitamin D3 at 2000 units p.o. daily. 8. Voltaren gel as needed. 9. Glargine 74 units b.i.d. 10. Nasonex 50 mcg 2 puffs intranasally daily. 11. Oxycodone 10 mg p.o. b.i.d. ALLERGIES: No known drug allergies. FAMILY HISTORY: Patient reports that both her parents related to old age. SOCIAL HISTORY: Patient lives with her , states he will be the health care proxy. There is no prior alcohol, tobacco, or drug use. REVIEW OF SYSTEMS: A 14-point review of systems was completed with Ms. Nelson and all those not mentioned above were negative. PHYSICAL EXAMINATION: Vital Signs: Temperature 97.8, pulse rate 93, respiratory rate 16, O2 saturation 96% on 2 L nasal cannula, blood pressure 160/ 68. General: Ms. Nelson is lying in the bed. She is in no acute distress. She is alert, she is oriented x3. She moves all extremities equally. There is no facial asymmetry or focal weakness. Extraocular movements are intact. Heart: S1, S2. No murmur, rub, or gallop and regular. Lungs are clear to auscultation bilaterally with no accessary muscle use and good aeration. The abdomen is soft and nontender with bowel sounds positive x4. Extremities: No cyanosis or edema. Skin is intact. DIAGNOSTIC STUDIES/LAB DATA: Preoperatively, WBC is 7.8, hemoglobin 14.0, hematocrit was 42 and platelet count was 123. Sodium 141, potassium 4.0, chloride 107, BUN 25, creatinine 0.75, glucose 96. ASSESSMENT: Ms. Nelson is a 66-year-old female with past medical history of osteoarthritis and type 2 diabetes as well as hypertension who presents to the hospital on 09/12/16 with plans for an elective right total hip arthroplasty. PLAN/RECOMMENDATIONS: 1. Right total hip arthroplasty: Management will be per orthopedic services. Patient will have pain medications p.r.n. with a bowel regimen. Physical and Occupational Therapy will be consulting and treating. Finally we will monitor H and H closely. 2. Type 2 diabetes: Patient is on high dose of glargine twice daily. We will continue with that with lispro sliding scale insulin for coverage with meals and we can adjust this going forward as needed based on clinical course. 3. Hypertension: Patient will continue on her home lisinopril. 4. Code status is full code. 5. DVT prophylaxis with Lovenox and warfarin per Ortho. TIME SPENT: Approximately 60 minutes was spent in the consultation of this patient, more than half the time spent with the patient at the bedside reviewing the events leading up to this hospitalization, performing the physical examination, reviewing the plan of care. REINA OSCAR, DIETARY WORKER [id number]/[facility] #: [id number] [facility]obson
[2016-09-14] MEDS: Enoxaparin(*) 30 MG/0.3 ML SYR SUBCUT SCH (16:50)
[2016-09-14] MEDS ORDERED: Warfarin TAB(*) 4 MG PO ONE (17:00)
[2016-09-14] MEDS: Atorvastatin* 10 MG TAB PO SCH (21:57)
[2016-09-15] MEDS: oxyCODONE/Acetamin 5/325 MG* TAB PO PRN ×2 (03:02→08:00)
[2016-09-15 06:02] LABS: Hematocrit 25 % (35-47); Hemoglobin 8.6 g/dl (12.0-16.0)
[2016-09-15] MEDS: Levothyroxine TAB* 150 MCG TAB PO SCH (06:18)
[2016-09-15] MEDS: Lisinopril TAB* 10 MG PO SCH (07:59)
[2016-09-15] MEDS: Gabapentin CAP(*) 300 MG PO SCH (08:00)
[2016-09-15] MEDS: Docusate CAP* 100 MG PO SCH (08:01)
[2016-09-15] MEDS: metFORMIN* 1,000 MG TAB PO SCH (08:01)
[2016-09-15] MEDS: Magnesium Hydroxide LIQ* 30 ML UDC PO SCH (08:03)
--- NOTE | 2016-09-15 08:10 | PN ---
Progress Note - Progress Note Date of Service: 09/15/16 SOAP: Subjective: POD #3 Left MAUREEN, doing well. states that her pain is better than it was yesterday. Denies CP/SOB, calf pain, n/v, f/c/ns Objective: Gen: A&Ox3, NAD at rest in chair Left Hip: Dressing C/D/I. Mild edema to thigh and calf, No erythema. +f/e at ankle, MTPs. N/V intact Vital Signs Temp 99.4 F 09/15/16 03:00 Pulse 100 09/15/16 03:00 Resp 16 09/15/16 08:00 BP 130/40 09/15/16 03:00 Pulse Ox 92 09/15/16 03:00 Intake & Output 09/14/16 09/15/16 09/15/16 18:59 06:59 18:59 Intake Total 640 890 Output Total 1400 400 Balance -760 490 Intake: Oral 640 890 Output: Urine 1400 400 Other: # Bowel Movements 1 1 Estimated Stool Amount Medium Medium Assessment: POD #3 Left MAUREEN Plan: D/C to [facility] Cont PT/OT Cont pain medication INR 1.6 today, Coumadin 6mg tonight
[2016-09-15] MEDS: Insulin LISPRO* 1 UNITS UNIT SUBCUT SCH (08:28)
[2016-09-15] MEDS: Insulin GLARGINE(*) 1 UNITS UNIT SUBCUT SCH (08:29)
[2016-09-15 09:06] VITALS: BP 119/45
[2016-09-15] MEDS: Nystatin TOP POWDER* 15 GM BTL TOPICAL SCH (09:19)
--- NOTE | 2016-09-15 10:21 | DS ---
CC: [facility] DATE OF ADMISSION: 09/12/16 DATE OF DISCHARGE: 09/15/16 ATTENDING PROVIDER: Dr. Alisia Chambers * (DICTATED BY JULIUS DUBOIS) CHIEF COMPLAINT: 1. Left hip pain. 2. Generalized osteoarthritis. 3. Hypercholesterolemia. 4. Hypertension. 5. Morbid obesity. 6. Diabetes. DISCHARGE DIAGNOSES: 1. Left total hip arthroplasty. 2. Generalized osteoarthritis. 3. Hypercholesterolemia. 4. Hypertension. 5. Morbid obesity. 6. Diabetes. PROCEDURE: 1. Uncomplicated left total hip arthroplasty. CONSULTATIONS: 1. Physical therapy. 2. Occupational therapy. 3. Hospitalist medicine. BRIEF HISTORY: Ms. Nelson is a very pleasant 66-year-old female with severe end - stage degenerative osteoarthritis of the left hip who failed conservative treatment and elected for total hip arthroplasty by Dr. Alisia Chambers on . HOSPITAL COURSE: Ms. Nelson was admitted to [facility] on 09/12/16 where she underwent an uncomplicated left total hip arthroplasty. Post- operatively, she recovered on the surgical short stay unit. On post-op day #2, her Marques was removed and the patient was voiding on her own. She advanced to a regular diet without difficulty. Her pain was controlled with po Oxycodone. Her labs and vital signs remained stable with her blood glucose levels between 160 to 230. She was able to weight bear as tolerated on the left lower extremity and advanced appropriately with physical therapy and occupational therapy. Her DVT prophylaxis was managed with Lovenox and Coumadin. By post- op day #3, she was orthopedically and medically stable for discharge to go home with home services. PHYSICAL EXAMINATION: In general, the patient is alert and oriented, in no acute distress. Vital signs - temperature 99.4, pulse 100, respirations 16, blood pressure 130/40, pulse oxygenation 92% on room air. Exam of the left lower extremity shows the dressing to be clean, dry and intact. Mild edema to the thigh and calf, no erythema noted. Positive flexion and extension at ankle. Neurovascularly intact. LABORATORY DATA ON DATE OF DISCHARGE: H\T\H of 8.6 and 25, INR 1.60. RADIOGRAPHS: Post-operative films of the left hip show anatomic alignment of the left hip prosthesis. DISCHARGE MEDICATIONS: 1. Lovastatin 20 mg po at bedtime. 2. Colace 100 mg po bid. 3. Nasonex two sprays both nares daily. 4. Gabapentin 300 mg po q.i.d. 5. Lantus insulin 74 units subcutaneous bid. 6. Metformin 1000 mg po bid. 7. Percocet 5/325 one to two tablets q 4 hours as needed for pain. 8. Vitamin D3 2000 international units daily. 9. Lisinopril 40 mg po q a.m. 10. Nystatin topical bid. 11. Ventolin HFA one to two puffs q 4 hours prn. 12. Levothyroxine 150 mcg po daily. 13. Coumadin 2 mg tablets, one to three tablets po daily at 5 p.m. CONDITION ON DISCHARGE: Stable. DISCHARGE INSTRUCTIONS: Ms. Nelson is a very pleasant 66-year-old female post- op day #3 status post left total hip arthroplasty, uncomplicated. She is orthopedically and medically stable for discharge to [facility]. Her labs and vital signs are stable. She will restart her home medications. She will take 6 mg of Coumadin tonight, 4 mg on Sunday, 4 mg on Sunday, and have a repeat INR check on Sunday. She'll have INR draws every Sunday and . She will remain weightbearing as tolerated on left lower extremity, and have physical therapy at [facility]. She will take Percocet as needed for pain control, and Colace up to 3x a day for constipation. She will follow up with Dr. Chambers in 10-14 days for incision check and suture removal. She was instructed to go to the ER if she develops chest pain or shortness of breath, and to call the office with fever, increasing pain or redness around the incision site. JULIUS DUBOIS [id number]/[facility] #: [id number] [place]
[2016-09-15] MEDS: oxyCODONE TAB* 5 MG TAB PO PRN (11:25)
--- NOTE | 2016-09-15 14:27 | PN ---
Hospitalist Progress Note Patient is POD #3 and discharged to [facility] this am by orthopedic service. Noted patient was intermittently febrile overnight with Tmax 101.3. No focal symptoms noted in nursing notes. Recommend resuming usual home medications at discharge. Patient should continued to be monitored for clinical signs of infection and treated appropriately. No empiric therapy initiated prior to discharge.
== END 2016-09-15 11:35 | DRG 470 ==
LOC: AA 10:45 → SSU 16:36
PROVIDERS: ADMIT Orthopaedic Surgery Adult Reconstructive Orthopaedic Surgery; ATTEND Orthopaedic Surgery Adult Reconstructive Orthopaedic Surgery
PROC: 0SRB04A Replacement of Left Hip Joint with Ceramic on Polyethylene Synthetic Substitute, Uncemented, Open Approach (ICD-10-PCS; principal; 2016-09-12 13:00)
DX: M16.12 Unilateral primary osteoarthritis, left hip (principal); E11.65 Type 2 diabetes mellitus with hyperglycemia; I10 Essential (primary) hypertension; E78.00 Pure hypercholesterolemia, unspecified; E66.01 Morbid (severe) obesity due to excess calories; Z96.652 Presence of left artificial knee joint; E03.9 Hypothyroidism, unspecified; E78.5 Hyperlipidemia, unspecified; G47.33 Obstructive sleep apnea (adult) (pediatric); K59.00 Constipation, unspecified; R50.9 Fever, unspecified; J32.9 Chronic sinusitis, unspecified; M79.7 Fibromyalgia; M25.752 Osteophyte, left hip; M15.9 Polyosteoarthritis, unspecified; Z79.01 Long term (current) use of anticoagulants; Z98.49 Cataract extraction status, unspecified eye; Z83.3 Family history of diabetes mellitus; Z98.51 Tubal ligation status; Z68.36 Body mass index [BMI] 36.0-36.9, adult; Z80.9 Family history of malignant neoplasm, unspecified; Z79.4 Long term (current) use of insulin
CPT/HCPCS: 36415; 72170; 80048; 85014; 85018; 85610; A9270-GY; C1713; C1776; J0690; J1100; J1170; J1650; J1885; J2250; J2405; J2704; J3010